=== PATIENT | female | born 1950 ===

== ENCOUNTER 2021-01-30 11:25 | Inpatient (IN) ==
[~2021-01-30 11:25] MED LIST: Buffered Lidocaine 1% SYRIN 1 ml INTRADERM ONE; Dexamethasone IV 4 MG/ML VIAL 1 ml VIAL ONE; Lactated Ringers 1000 ml BAG 1,000 ML IV SCH; Lidocaine 2% PF 5 ML VIAL ONE; Ondansetron 4 mg VIAL 2 MG/ML 2 ml VIAL ONE; Phenylephrine IV 10 MG/ML 1 ml VIAL ONE
[2021-01-30] MEDS ORDERED: Propofol 10 MG/ML 20 ML BTL ONE (11:48)
[2021-01-30] MEDS ORDERED: Lidocaine 1% MPF 5 ML VIAL ONE (12:04)
[2021-01-30] MEDS ORDERED: ROPIVACAINE 5 MG/ML 30 ML BTL (0.5%) ONE ×3 (12:04→15:14)
[2021-01-30] MEDS ORDERED: Midazolam 2 mg/2 ml VIAL 1 mg/ml 2 ml VIAL (2 mg) ONE ×2 (12:23→13:32)
[2021-01-30] MEDS ORDERED: Vancomycin 1,250 MG IV x ONCE IVPB ONE (12:50)
[2021-01-30] MEDS ORDERED: Propofol 10 mg/ml 100 ML BTL 100 ML ONE (13:56)
[2021-01-30] MEDS ORDERED: DiMENhydriNATE IV 50 mg/ml 1 ml VIAL IV PUSH PRN (14:18)
[2021-01-30] MEDS ORDERED: Naloxone 0.4 mg VIAL 0.4 mg/ml 1 ml VIAL IV PRN (14:18)
[2021-01-30] MEDS ORDERED: diPHENhydraMINE 25 mg TAB PO PRN (16:40)
[2021-01-30] MEDS ORDERED: Morphine 2 MG/ML SYRINGE IV PRN (16:40)
[2021-01-30] MEDS ORDERED: Ondansetron 4 mg VIAL 2 MG/ML 2 ml VIAL IV PRN (16:40)
[2021-01-30] MEDS ORDERED: diPHENhydraMINE IV 50 MG/ML 1 ml VIAL (BENADRYL) IV PRN (16:40)
[2021-01-30] MEDS ORDERED: Ondansetron ODT 4 mg TAB 4 MG TAB PO PRN (16:40)
[2021-01-30] MEDS ORDERED: Magnesium Hydroxide LIQ 30 ML UDC PO PRN (16:40)
[2021-01-30] MEDS ORDERED: Lactulose 30 ml UDC PO PRN (16:40)
[2021-01-30] MEDS ORDERED: Vancomycin per Pharmacy 1 EA NOTE FOLLOW UP SCH (17:00)
[2021-01-30] MEDS ORDERED: HYDROmorphone 1 MG/1 ML SYRINGE ONE (17:31)
[2021-01-30] MEDS ORDERED: Ondansetron 4 mg VIAL 2 MG/ML 2 ml VIAL ONE (17:32)
[2021-01-30] MEDS: HYDROmorphone 1 MG/1 ML SYRINGE IV PRN ×3 (17:38→18:03)
[2021-01-30] MEDS: Lactated Ringers 1000 ml BAG 1,000 ML IV SCH (18:43)
[2021-01-30] MEDS: Magnesium Hydroxide LIQ 30 ML UDC PO SCH (20:29)
[2021-01-31] MEDS: Lactated Ringers 1000 ml BAG 1,000 ML IV SCH (05:07)
[2021-01-31] MEDS ORDERED: Vancomycin 1,250 MG in NS 0.9% 250 ml 250 ML IVPB SCH (06:00)
[2021-01-31 08:26] LABS: Hematocrit 36 % (35-47); Hemoglobin 12.2 g/dL (12.0-16.0); Mean Platelet Volume 7.6 fL (7.4-10.4); Platelet Count 246 10^3/uL (150-450)
[2021-01-31 08:43] LABS: Calcium 8.6 mg/dL (8.6-10.3)
[2021-01-31] MEDS ORDERED: Vitamin THERAPEUTIC TAB PO SCH (09:00)
[2021-01-31] MEDS ORDERED: Lisinopril/HCTZ 20/25 TAB (NF) PO SCH (09:00)
[2021-01-31] MEDS: Magnesium Hydroxide LIQ 30 ML UDC PO SCH ×2 (10:19)
[2021-01-31 11:42] VITALS: BP 95/62
== END 2021-01-31 12:12 | disposition home or self-care (01) | DRG 470 ==
LOC: OR 11:25 → SSU 11:25 → OBSVTOIN 16:41
PROVIDERS: ADMIT Orthopaedic Surgery Adult Reconstructive Orthopaedic Surgery; ATTEND Orthopaedic Surgery Adult Reconstructive Orthopaedic Surgery